=== PATIENT | female | born 1990 | race American Indian/Alaskan Native ===

== ENCOUNTER 2019-11-08 02:35 | Emergency (ER) | payer SELFPAY ==
[2019-11-08 02:51] VITALS: BP 106/72
--- NOTE | 2019-11-08 04:41 | Emergency Department Report ---
ED General Adult HPI - General Chief complaint: Sore Throat Stated complaint: SORE THROAT,RIGHT EAR PAIN Time Seen by Provider: 11/08/19 03:46 Source: patient Mode of arrival: Ambulatory Limitations: No Limitations - History of Present Illness Initial comments: pt is a 29-year-old female presents emergency room with complaints of a sore throat that began yesterday. She has associated right ear pain. She denies any drainage of the ear, fever, cough, congestion, any other symptoms. She denies any known sick contacts. She denies any past medical history or allergies to medications. She states her last menstrual cycle was 10/10/2019. - Related Data Previous Rx's Medication Instructions Recorded Last Taken Type Neomy/Polymyx B/Hc (Otic) Soln 4 drops AD TID 7 Days #1 bottle 11/08/19 Unknown Rx [Cortisporin (Otic) Soln] ED Review of Systems ROS: Stated complaint: SORE THROAT,RIGHT EAR PAIN Other details as noted in HPI Comment: All other systems reviewed and negative ED Past Medical Hx - Past Medical History Previous Medical History?: No - Surgical History Past Surgical History?: No - Social History Smoking Status: Never Smoker Substance Use Type: None - Medications Home Medications: Home Medications Medication Instructions Recorded Confirmed Last Taken Type Neomy/Polymyx B/Hc (Otic) Soln 4 drops AD TID 7 Days #1 bottle 11/08/19 Unknown Rx [Cortisporin (Otic) Soln] ED Physical Exam - General Limitations: No Limitations General appearance: alert, in no apparent distress - Head Head exam: Present: atraumatic, normocephalic - Eye Eye exam: Present: normal appearance, PERRL, EOMI - ENT ENT exam: Present: mucous membranes moist, other (mild erythema of the posterior oropharynx,no tonsillar exudates or hypertrophy, uvula is midline no uvular edema left TM and canal are normal, right canal with erythema, right TM is normal) - Respiratory Respiratory exam: Present: normal lung sounds bilaterally. Absent: respiratory distress, wheezes, rales, rhonchi, stridor, chest wall tenderness, accessory muscle use, decreased breath sounds, prolonged expiratory - Cardiovascular Cardiovascular Exam: Present: regular rate, normal rhythm, normal heart sounds. Absent: systolic murmur, diastolic murmur, rubs, gallop - Neurological Exam Neurological exam: Present: alert, oriented X3 - Psychiatric Psychiatric exam: Present: normal affect, normal mood - Skin Skin exam: Present: warm, dry, intact ED Course Vital Signs 11/08/19 02:50 Temperature 97.7 F Pulse Rate 70 Respiratory 18 Rate Blood Pressure 106/72 O2 Sat by Pulse 100 Oximetry ED Medical Decision Making - Medical Decision Making pt is a 29-year-old female presents emergency room with complaints of a sore throat that began yesterday. She has associated right ear pain. She denies any drainage of the ear, fever, cough, congestion, any other symptoms. She denies any known sick contacts. She denies any past medical history or allergies to medications. She states her last menstrual cycle was 10/10/2019. vitals are normal. on exam: mild erythema of the posterior oropharynx, no tonsillar exudates or hypertrophy, uvula is midline no uvular edema, left TM and canal are normal, right canal with erythema, right TM is normal. rapid strep is negative. examination consistent with early otitis externa. throat discomfort most likely related to viral etiology, discussed symptomatic treatment with pt. pt given prescription for abx ear drops. advised pt to please use medication as prescribed. May take Tylenol or ibuprofen for any discomfort. May do warm saltwater gargles, drink warm tea, eat warm soup breath. May use Cepacol [id number] or throat spray for your throat irritation. Follow-up with a primary care doctor in the next 2-3 days. Return to the emergency room for any new or worsening symptoms. - Differential Diagnosis otitis media, otitis externa, pharyngitis, tonsillitis Critical care attestation.: If time is entered above; I have spent that time in minutes in the direct care of this critically ill patient, excluding procedure time. ED Disposition Clinical Impression: Sore throat Right otitis externa Qualifiers: Otitis externa type: unspecified type Chronicity: acute Qualified Code(s): H60.501 - Unspecified acute noninfective otitis externa, right ear Disposition: - TO HOME OR SELFCARE Is pt being admited?: No Does the pt Need Aspirin: No Condition: Stable Instructions: Otitis Externa (ED) Additional Instructions: Please use medication as prescribed. May take Tylenol or ibuprofen for any discomfort. May do warm saltwater gargles, drink warm tea, eat warm soup breath. May use Cepacol [id number] or throat spray for your throat irritation. Follow-up with a primary care doctor in the next 2-3 days. Return to the emergency room for any new or worsening symptoms. Prescriptions: Neomy/Polymyx B/Hc (Otic) Soln [Cortisporin (Otic) Soln] 4 drops AD TID 7 Days #1 bottle Referrals: TOMI NOLAN MD [Staff Physician] - 2-3 Days [facility] [Outside] - 2-3 Days Forms: Accompanied Note, Work/School Release Form(ED) Time of Disposition: 04:42 Print Language: CONGOLESE
== END 2019-11-08 04:58 | disposition home or self-care (01) ==
LOC: ED 02:35
DX: J02.9 Acute pharyngitis, unspecified (principal); H60.501 Unspecified acute noninfective otitis externa, right ear
CPT/HCPCS: 87116; 87430; 99283